=== PATIENT | female | born 1950 | race Caucasian/White ===

== ENCOUNTER → 2022-12-08 10:57 | Outpatient (BNVA) | payer MEDICARE, OTHER, SELFPAY | PROVIDERS: PCP Clinical Nurse Specialist Adult Health; Visit Provider Clinical Nurse Specialist Adult Health | DX: D50.9 Iron deficiency anemia, unspecified (principal); K92.1 Melena | CPT/HCPCS: 80053; 85025 ==

== ENCOUNTER → 2023-01-04 14:53 | Outpatient (BNVA) | payer MEDICARE, OTHER, SELFPAY | PROVIDERS: PCP Clinical Nurse Specialist Adult Health; Visit Provider Surgery | DX: K92.1 Melena (principal) | CPT/HCPCS: 99204 ==

== ENCOUNTER 2023-01-19 07:35 | Day surgery (SDC) | payer MEDICARE, OTHER, SELFPAY ==
[2023-01-17 10:16] VITALS: BMI 19.8
[2023-01-19 07:48] VITALS: BP 166/88; PULSE 61; RESP 16; TEMP 36.4; O2SAT 94
[2023-01-19] MEDS: sodium chloride 0.9% 1,000 ML 30 ML IV (08:03)
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
--- NOTE | 2023-01-19 08:22 | W.PM.OPSUD ---
Surgery/Procedure H&P Update DATE OF PROCEDURE: January 19, 2023 DATE H&P PERFORMED: 01/04/23 CHANGES TO PREVIOUS DOCUMENTATION: patient was evaluated by me this morning, there is no changes in exam. colonoscopy indicated for hemartochexia PREOP DIAGNOSIS: Hematochezia PRIMARY INDICATION FOR PROCEDURE: hematochezia PLANNED PROCEDURE: Operation Date: 01/19/23 08:50 Proposed Procedures p Colonoscopy 79096,Z12.11(Not Applicable) - Rigo Amaro MD
--- NOTE | 2023-01-19 09:38 | SUR.OPER ---
3 mL ink injected at hepatic flexure mass.
[2023-01-19 09:39] VITALS: BP 123/75; PULSE 65; RESP 16; TEMP 36.3; O2SAT 96
[2023-01-19 09:52] VITALS: BP 106/68; PULSE 62; RESP 16; O2SAT 95
--- NOTE | 2023-01-19 10:10 | ANE.PACU2 ---
Inpatient post-anesthesia follow up: Airway intact: Yes Vital signs: Temperature 97.3 F Pulse Rate 62 Respiratory Rate 16 Blood Pressure 106/68 Pulse Oximetry 95 Oxygen Delivery Me thod Room Air Oxygen Flow Rate 4 Fraction of Inspir ed Oxygen Hydration adequate: Yes Nausea and vomiting: No Pain level: 1 Mental status: Baseline
[2023-01-19] MEDS: ondansetron 2 mg/ML SDV 2 mL 4 MG IVP (10:12)
== END 2023-01-19 10:49 | disposition home or self-care (01) ==
PROVIDERS: PCP Clinical Nurse Specialist Adult Health; Visit Provider Surgery
PROC: 0DJD8ZZ Inspection of Lower Intestinal Tract, Via Natural or Artificial Opening Endoscopic (ICD-10-PCS; CPT 45378; principal; 2023-01-19 08:50)
DX: K92.1 Melena (principal); C18.3 Malignant neoplasm of hepatic flexure; D12.8 Benign neoplasm of rectum; D12.4 Benign neoplasm of descending colon; F17.210 Nicotine dependence, cigarettes, uncomplicated
CPT/HCPCS: 45381; 45384; 88305; J2405; J2704; J3490; J7030

== ENCOUNTER → 2023-01-26 16:05 | Outpatient (BNVA) | payer MEDICARE, OTHER, SELFPAY | PROVIDERS: PCP Clinical Nurse Specialist Adult Health; Visit Provider Surgery | DX: K62.89 Other specified diseases of anus and rectum (principal); C18.9 Malignant neoplasm of colon, unspecified | CPT/HCPCS: 99215 ==